=== PATIENT | female | born 1995 | race African-American/Black ===

== ENCOUNTER 2023-10-31 07:08 | Day surgery (SDC) | payer OTHER ==
[2023-10-31] MEDS ORDERED: Midazolam 1 MG/ML 2 ML SDV IV ONE (07:09)
[2023-10-31] MEDS ORDERED: Lidocaine 2% 100 MG/5 ML Syringe IVPUSH ONE (07:09)
[2023-10-31] MEDS ORDERED: Propofol 200 MG/20 ML SDV IV ONE (07:09)
[2023-10-31] MEDS ORDERED: Sodium Chloride 0.9% 10 ML Syringe FLUSH PRN (07:30)
[2023-10-31] MEDS: Lactated Ringers 1,000 ML IV SCH (07:47)
== END 2023-10-31 10:13 | disposition home or self-care (01) ==
LOC: FB.SDS 07:08
PROVIDERS: ATTEND Surgery
DX: K29.50 Unspecified chronic gastritis without bleeding (principal); K29.80 Duodenitis without bleeding; K21.9 Gastro-esophageal reflux disease without esophagitis
CPT/HCPCS: 00731; 43239; 88305; 88342; J2250; J2704; J7120